=== PATIENT | male | born 2000 ===

== ENCOUNTER 2024-08-31 20:39 | Emergency (ER) | payer OTHER ==
[~2024-08-31 20:39] MED LIST: LORazepam 2 MG/ML SDV ONE
[2024-08-31] MEDS: LORazepam 2 MG/ML SDV IVPUSH ONE (20:45)
[2024-08-31 21:01] LABS: BASOPHILS ABSOLUTE AUTO 0.05 K/uL (0.00-0.10); BASOPHILS PERCENT AUTO 0.6 % (0.1-1.3); EOSINOPHILS ABSOLUTE AUTO 0.26 K/uL (0.00-0.40); HEMATOCRIT 43.9 % (38.4-49.7); HEMOGLOBIN 14.9 g/dL (12.9-16.9); IMMATURE GRAN PERCENT AUTO 1.1 % (0.0-0.7); LYMPHOCYTES ABSOLUTE AUTO 1.95 K/uL (0.8-3.3); LYMPHOCYTES PERCENT AUTO 22.3 % (11.4-47.7); MEAN CORPUSCULAR HEMOGLOBIN 30.1 pg (31.6-35.5); MEAN CORPUSCULAR HGB CONC 33.9 g/dL (31.6-35.5); MEAN CORPUSCULAR VOLUME 88.7 fL (81.4-99.0); MONOCYTES ABSOLUTE AUTO 0.66 K/uL (0.20-0.90); MONOCYTES PERCENT AUTO 7.5 % (3.3-12.6); NEUTROPHILS ABSOLUTE AUTO 5.73 K/uL (1.0-7.6); NEUTROPHILS PERCENT AUTO 65.5 % (40.0-78.1); PLATELET COUNT,PLT 343 K/uL (130-375); RED BLOOD CELL COUNT 4.95 M/uL (4.14-5.76); WHITE BLOOD CELL COUNT,WBC 8.8 K/uL (3.2-11.0)
[2024-08-31 21:13] LABS: A/G RATIO 1.1 (1.2-2.2); ALANINE AMINOTRANSFERASE,ALT 48 U/L (12-78); ALBUMIN 3.8 g/dL (3.4-5.0); ALKALINE PHOSPHATASE 75 U/L (46-116); ANION GAP 5.8 mmol/L (5.0-14.0); ASPARTATE AMNIOTRANSFERASE,AST 27 U/L (15-37); BILIRUBIN TOTAL 0.2 mg/dL (0.2-1.0); BLOOD UREA NITROGEN,BUN 13 mg/dL (7-18); CALCIUM 8.6 mg/dL (8.5-10.1); CARBON DIOXIDE,CO2 31 mmol/L (21-32); CHLORIDE,CL 104 mmol/L (100-108); CREATININE 1.1 mg/dL (0.8-1.3); ESTIMATED GFR 97 mL/min (>60); GLUCOSE RANDOM 113 mg/dL (74-106); PROTEIN TOTAL,TP 7.4 g/dL (6.4-8.2); SODIUM,NA 141 mmol/L (140-148)
[2024-08-31 21:16] LABS: LACTIC ACID 1.6 mmol/L (0.4-2.0)
[2024-08-31 21:20] LABS: PROTHROMBIN TIME 10.4 sec (9.2-10.6)
[2024-08-31] MEDS: HYDROmorphone 0.5 MG/0.5 ML Syringe IVPUSH ONE (22:03)
[2024-08-31] MEDS: Sodium Chloride 0.9% 10 ML Syringe FLUSH ONE (22:14)
[2024-08-31] MEDS: Sodium Chloride 0.9% 60 ML IV ONE (22:14)
[2024-08-31] MEDS: Iopamidol 612 MG/ML 100 ML Bottle IV ONE (22:14)
[2024-08-31] MEDS: Ketorolac 30 MG/ML SDV IVPUSH ONE (23:10)
== END 2024-08-31 23:30 | disposition home or self-care (01) ==
LOC: JP.ED 20:39
DX: Z04.1 Encounter for examination and observation following transport accident (principal); Z79.01 Long term (current) use of anticoagulants; V89.2XXA Person injured in unspecified motor-vehicle accident, traffic, initial encounter
CPT/HCPCS: 36415; 70450; 71260; 72125; 74177; 76377; 80053; 80307; 83605; 84484; 85025; 85610; 86850; 86900; 86901; 93005; 93010; 96374; 96375; 99284; J1171; J1885; J2060; J3490; Q9967